=== PATIENT | male | born 1980 | race Caucasian/White ===

== ENCOUNTER 2018-02-03 01:00 | Emergency (ER) | payer BC ==
[~2018-02-03] VITALS: Ht 180.3 cm; Wt 94.4 kg
[2018-02-03 01:13] VITALS: Ht 180.3 cm; Wt 94.4 kg
[2018-02-03 04:06] LABS: RED CELL DISTRIBUTION WIDTH 12.9 % (11.5-14.5)
[2018-02-03 04:18] LABS: PLATELET COUNT 377 x10^3mcL (130-400)
[2018-02-03 04:19] LABS: ALBUMIN 4.1 g/dL (3.4-5.0); ALKALINE PHOSPHATASE 96 U/L (46-116); ALT/SGPT 76 U/L (16-63); AMYLASE 27 U/L (25-115); AST/SGOT 35 U/L (15-37); BASOPHIL % 5.1 % (0-2); BILIRUBIN TOTAL 0.5 mg/dL (0.20-1.00); CALCIUM 9.3 mg/dL (8.5-10.1); CARBON DIOXIDE 27.2 mmol/L (21-32); CHLORIDE SERUM 104 mmol/L (98-107); CREATININE SERUM 1.1 mg/dL (0.7-1.3); GFR1 > 60 mL/min; GLUCOSE SERUM 131 mg/dL (74-106); LIPASE 181 IU/L (73-393); POTASSIUM SERUM 3.7 mmol/L (3.5-5.1); SODIUM SERUM 138 mmol/L (136-145); TOTAL PROTEIN, SERUM 7.8 g/dL (6.4-8.2)
[2018-02-03 06:59] VITALS: BP 138/80
== END 2018-02-03 06:50 | disposition home or self-care (01) ==
LOC: ED 01:00
PROVIDERS: Emergency Medicine Emergency Medical Services
DX: K29.20 Alcoholic gastritis without bleeding (principal)
CPT/HCPCS: J2270; J2405; J7030; Q0162